=== PATIENT | female | born 1950 | race Caucasian/White ===

== ENCOUNTER → 2017-03-24 | Outpatient (CLI) | payer OTHER, MEDICARE | LOC: FCPNEURO 23:46 | PROVIDERS: ATTEND Psychiatry & Neurology Sleep Medicine | DX: G47.39 Other sleep apnea (principal); G47.61 Periodic limb movement disorder ==

== ENCOUNTER 2018-05-08 18:28 | Emergency (ER) | payer OTHER, MEDICARE ==
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
[2018-05-08 20:16] VITALS: BP 194/103
== END 2018-05-08 20:14 | disposition home or self-care (01) ==
LOC: EDUNIT#
DX: S16.1XXD Strain of muscle, fascia and tendon at neck level, subsequent encounter (principal); S06.0X0D Concussion without loss of consciousness, subsequent encounter; V49.50XA Passenger injured in collision with unspecified motor vehicles in traffic accident, initial encounter
CPT/HCPCS: 82435-PO; 82565-PO; 82947-PO; 84132-PO; 84295-PO; 84520-PO; 85014-ER